=== PATIENT | female | born 1960 | race African-American/Black ===

== ENCOUNTER 2020-11-06 09:56 | Outpatient (CLI) | payer MEDICARE, MEDICAID | END 2020-11-06 09:57 | disposition home or self-care (01) | LOC: BICMAMMO 09:56 | PROVIDERS: ATTEND Family Medicine | DX: Z12.31 Encounter for screening mammogram for malignant neoplasm of breast (principal) | CPT/HCPCS: 77063; 77067 ==

== ENCOUNTER 2021-11-24 10:16 | Outpatient (CLI) | payer MEDICARE, MEDICAID | END 2021-11-24 10:17 | disposition home or self-care (01) | LOC: BICMAMMO 10:16 | PROVIDERS: ATTEND Family Medicine | DX: Z12.31 Encounter for screening mammogram for malignant neoplasm of breast (principal) | CPT/HCPCS: 77063; 77067 ==

== ENCOUNTER 2023-12-15 09:27 | Outpatient (CLI) | payer OTHER, MEDICAID | END 2023-12-15 09:28 | disposition home or self-care (01) | LOC: BICMAMMO 09:27 | PROVIDERS: ATTEND Family Medicine | DX: Z12.31 Encounter for screening mammogram for malignant neoplasm of breast (principal) | CPT/HCPCS: 77063; 77067 ==